=== PATIENT | female | born 1975 | race Two or more races ===

== ENCOUNTER 2025-04-07 08:59 | Emergency (ER) | payer MEDICAID, SELFPAY ==
[2025-04-07 08:59] VITALS: BMI 46.3
[2025-04-07 09:05] VITALS: BP 192/100; PULSE 88; RESP 18; TEMP 36.6; O2SAT 99
--- NOTE | 2025-04-07 09:23 | PD.EDRME ---
Rapid Medical Screening Exam RME Arrival date/time: 04/07/25 08:59 49-year-old female with a history of hypertension and type 2 diabetes presents to the emergency room with a chief complaint of left sided epistaxis x 2 hours. I have greeted and performed a focused initial assessment of this patient. A comprehensive ED assessment and evaluation of the patient, analysis of all test results, and completion of the medical decision making process will be conducted by additional ED providers. Chief Complaint: Epistaxis/Nasal Foreign Body Vital signs: Vital Signs Temperature 98 F 04/07/25 09:05 Pulse Rate 88 04/07/25 09:05 Respiratory Rate 18 04/07/25 09:05 Blood Pressure 192/100 H 04/07/25 09:05 Pulse Oximetry (%) 99 04/07/25 09:05 Oxygen Delivery Method Room Air 04/07/25 09:05 Vital signs reviewed by provider: Yes
[2025-04-07 09:34] VITALS: BP 164/102; PULSE 98; RESP 16; O2SAT 98
[2025-04-07 10:25] VITALS: BP 155/107; PULSE 94; RESP 20; TEMP 36.2; O2SAT 98
--- NOTE | 2025-04-07 10:50 | PD.EDEPIST ---
ED Epistaxis RME/HPI General Chief complaint: Epistaxis/Nasal Foreign Body Stated complaint: NOSE BLEED SINCE 0800 Time Seen by Provider: 04/07/25 10:21 Arrival date/time: 04/07/25 08:59 RME / HPI RME / HPI Narrative: 04/07/25 08:59 49-year-old female with a history of hypertension and type 2 diabetes presents to the emergency room with a chief complaint of left sided epistaxis x 2 hours. I have greeted and performed a focused initial assessment of this patient. A comprehensive ED assessment and evaluation of the patient, analysis of all test results, and completion of the medical decision making process will be conducted by additional ED providers. DR. MCDANIELS MAIN ED EVALUATION 49 year old female with history of hypertension, diabetes, hypothyroidism presents to the ED for evaluation of left nostril bleeding beginning at 03:00 AM today. States she had readjusted her nose piercing just before the bleeding began. Reportedly bleeding had resolved after a few minutes of holding pressure. However, states she began bleeding again at 08:00AM and not improved with holding pressure, prompting ED visit. Denies any recent illness or runny nose. No other associated symptoms or complaints. Related Data Home Medications ?Medication ?Instructions ?Recorded ?Confirmed levothyroxine [Synthroid] PO 10/29/18 lisinopril PO 10/29/18 metformin PO 10/29/18 Previous Rx's ?Medication ?Instructions ?Recorded acetaminophen 500 mg tablet 1,000 mg (2 x 500 mg) PO Q4H PRN 09/06/18 pain #20 tabs montelukast 10 mg tablet 10 mg PO QPM #30 tabs 10/29/18 lisinopril 20 mg tablet 20 mg PO QDAY #30 tabs 07/05/20 cyclobenzaprine 10 mg tablet 10 mg PO HS PRN muscle spasm #20 03/21/21 tabs lisinopril 40 mg tablet 40 mg PO QDAY #30 tabs 04/07/25 Allergies Allergy/AdvReac Type Severity Reaction Status Date / Time No Known Allergies Allergy Verified 04/07/25 09:01 Review of Systems Review of Systems Systems Reviewed: All systems reviewed, normal except as documented Past Medical History Past Medical History CARDIAC: Positive Cardiac Disorders and Hypertension ENDOCRINE: Positive Endocrine Disorders, Diabetes Mellitus Type 2 and Hypothyroidism Surgical History SURGICAL: Positive Abdominal Surgery and Section Social History SMOKING STATUS: Never smoker SUBSTANCE USE: marijuana ED Exam Narrative Physical exam: Constitutional: Awake, alert, well appearing, obese, nontoxic, no acute distress HEENT: Normocephalic, atraumatic, extraocular movements intact, oozing blood from left nare, there is a piercing in place, there was packing placed in triage that was disinflated and oozing noted to increase. The nose piercing was removed and packing inflated to 6mL. Neck: Supple CV: Regular rate and rhythm, no murmurs/rubs/gallops Lungs: Clear to auscultation BL, no respiratory distress. Extremities: No deformities, no edema noted Skin: Warm, dry, intact Course Course Course Narrative: 1110h: The patient complaining of increased discomfort to the left nostril, RN removed 1mL of air from balloon. 1250h: Patient reports no more oozing from the left nare, no other complaints reported. Patient's blood pressure was noted to be significantly elevated during ED stay. Mentions that she ran out of her blood pressure medication several days ago so has not been taking it. Was given dose of labetalol as well as lisinopril here with improvement in systolic blood pressure. Given refill prescription for lisinopril for home. Advised on close outpatient follow-up with her PCP for further outpatient management of her blood pressure and follow-up in the next day with her primary doctor for removal of nasal packing. Would also consider avoiding the nose stud to the left nare given the recent bleeding that she has had. Quality Measures none Orders Category Date Time Status BMP [Basic Metabolic Panel] Stat Lab 04/07/25 11:42 Completed CBC Stat Lab 04/07/25 11:42 Completed Labetalol IV [Trandate IV] Med 04/07/25 13:43 Discontinued 20 mg IVP X1 ONE Lisinopril [Prinivil] Med 04/07/25 13:43 Discontinued 40 mg PO X1 ONE Vital Signs Vital signs: Vital Signs Temperature 98 F 04/07/25 09:05 Pulse Rate 88 04/07/25 09:05 Respiratory Rate 18 04/07/25 09:05 Blood Pressure 192/100 H 04/07/25 09:05 Pulse Oximetry (%) 99 04/07/25 09:05 Oxygen Delivery Method Room Air 04/07/25 09:05 Pulse ox is 99% on room air which is adequate. Epistaxis MDM Narrative MDM Narrative:: ISusanne, am scribing for and in the presence of Dr. Mcdaniels. Patient data External records reviewed:: [facility] previous records Clinical information provided by:: patient Social determinants that could affect healthcare access:: none Patient has the following chronic illnesses:: hypertension, diabetes, hypothyroidism How is presenting disease/condition affected by chronic disease/condition?: uneffected by Evaluation data The following diagnostics were reviewed and interpreted by me:: lab results Lab and/or radiology exams considered but not ordered:: None Interpretation Summary: PLT are within normal range Medications / Prescriptions Medications or Prescriptions considered but not ordered:: None Medication administrations:: Medication Administration History Discontinued Medications Labetalol HCl (Labetalol Inj 5 Mg/Ml Vial 20 Ml) 20 mg IVP X1 ONE Stop: 04/07/25 13:44 Last Admin: 04/07/25 13:58 Dose: 20 mg Documented By: ER Lisinopril (Lisinopril 20 Mg Tablet) 40 mg PO X1 ONE Stop: 04/07/25 13:44 Last Admin: 04/07/25 13:58 Dose: 40 mg Documented By: ER None Consultations Consultation(s) initiated? (list below): No Diagnosis Most likely diagnosis given after review of the tests above:: Epistaxis Admission Indicated Admission indicated?: not indicated Admission Request Was there a request for admission?: No Disposition Plan Disposition Plan: Discharge Discharge Attestation Discharge Attestation: The patient and all family members were given an opportunity to ask questions and understood the discharge instructions. Discharge instructions specifically effects, indications for sooner follow up or return to the emergency department, and the expected course of current diagnosis. Patient condition: Stable Critical Care Time Critical Care Time Critical Care Time: Yes Total Critical Care Time (min.): 30 Attestation: The high probability of a clinically significant, sudden or life threatening deterioration required my full and direct attention, intervention and personal management. The aggregate critical care time was [38] minutes. This time is in addition to time spent performing reported procedures but includes the following: [x] Data Review and interpretation [x] Patient assessment and monitoring of vital signs [x] Documentation [x] Medication orders and management Discharge Plan Plan Patient Disposition: HOME (Self Care) Patient condition on transfer: Stable Prescriptions/Referrals Prescriptions/Med Rec: New lisinopril 40 mg tablet 40 mg PO QDAY Qty: 30 0RF No Action levothyroxine [Synthroid] PO lisinopril PO metformin PO montelukast 10 mg tablet 10 mg PO QPM Qty: 30 0RF cyclobenzaprine 10 mg tablet 10 mg PO HS PRN (Reason: muscle spasm) Qty: 20 0RF acetaminophen 500 mg tablet 1,000 mg PO Q4H PRN (Reason: pain) Qty: 20 0RF lisinopril 20 mg tablet 20 mg PO QDAY Qty: 30 3RF Referrals: Yumi Johnson, JANIE [Primary Care Provider] - 04/08/25 Problem List Clinical Impression: Epistaxis, Hypertensive urgency Patient/Caregiver Discharge Instructions Education Materials: Low-Salt Choices, Hypertension Dc, ED Epistaxis (Adult), ED Hypertension, Established Additional Instructions: Follow-up in the next day for removal of nasal packing. 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 and late evening sun for Vitamin D health benefits) [place] (Avoid alcohol, illicit drugs, caffeinated beverages, smoking, etc) Air (Deep breathing exercises in the early mornings in fresh air) Rest (Adequate rest at night, going to bed a few hours before midnight and avoiding all screens/television/loud music in the time right before going to bed, also avoiding heavy meals just prior to going to bed) Trust in God (Spend time daily in Bible study and prayer - health benefits in contemplation of God's true character) Additional resources that can benefit: www.[employer], look under resources and seminars. Another good website is www.[employer].org Print Language: [place]i Stand Alone Forms: [employer] Info., Patient Portal Info Letter
[2025-04-07 12:10] LABS: Basophils # (Auto) 0.1 Thou/mm3 (0.0-0.2); Basophils % (Auto) 1 % (0-2.5); Eosinophils # (Auto) 0.2 Thou/mm3 (0.0-0.5); Eosinophils % (Auto) 2 % (0-10); Hematocrit 35.8 % (36.0-46.0); Hemoglobin 11.9 g/dL (12.0-16.0); Immature Granulocytes Auto 0.02 Thou/mm3 (0.00-0.00); Lymphocytes # (Auto) 1.5 Thou/mm3 (1.0-4.8); Lymphocytes % (Auto) 17 % (10-50); Mean Corpuscular HGB Conc 33.2 g/dl (31.0-37.0); Mean Corpuscular Hemoglobin 29.2 pg (25.0-35.0); Mean Corpuscular Volume 88 fL (80-100); Monocytes # (Auto) 0.7 Thou/mm3 (0.0-0.8); Monocytes % (Auto) 7 % (0-12); Neutrophils # (Auto) 6.4 Thou/mm3 (1.8-7.7); Neutrophils % (Auto) 73 % (37-80); Nucleated Red Blood Cell # 0.00 Thou/mm3 (0.00-0.00); Nucleated Red Blood Cell % 0 /100 WBC (0); Platelet Count 341 Thou/mm3 (140-440); RDW Standard Deviation 42.4 fL (36.4-46.3); Red Blood Count 4.07 Miln/mm3 (4.00-5.20); White Blood Count 8.8 Thou/mm3 (3.6-11.0)
[2025-04-07 12:24] LABS: Anion Gap 11 (7-16); BUN/Creatinine Ratio 11 Ratio (12-20); Blood Urea Nitrogen 9 mg/dL (9-23); Calcium 9.2 mg/dL (8.3-10.6); Carbon Dioxide 24.5 mMol/L (20.0-31.0); Chloride 108 mMol/L (98-107); Creatinine (Component) 0.8 mg/dL (0.6-1.3); Estimated Creatinine Clearance 111.1 mL/min (>60); Glucose 97 mg/dL (74-106); Osmolality,Calculated 283 (275-295); Potassium 4.3 mMol/L (3.4-5.1); Sodium 143 mMol/L (136-145); eGFR > 60 See Note
[2025-04-07 13:50] VITALS: BP 211/118; PULSE 95; RESP 20; O2SAT 98
[2025-04-07 13:58] VITALS: BP 211/118; PULSE 94; PULSE 95
[2025-04-07] MEDS: LABETALOL INJ 5 MG/ML VIAL 20 ML 20 MG IVP (13:58)
[2025-04-07 15:00] VITALS: BP 189/96; PULSE 85; RESP 18; TEMP 36.7; O2SAT 96
== END 2025-04-07 15:01 | disposition home or self-care (01) ==
PROVIDERS: Emergency Provider Family Medicine; PCP Nurse Practitioner Women's Health
DX: R04.0 Epistaxis (principal); I16.0 Hypertensive urgency
CPT/HCPCS: 30901; 36415; 80048; 85025; 96374; 99283; J3490; A9270; J1920

== ENCOUNTER 2025-04-08 06:45 | Emergency (ER) | payer MEDICAID, SELFPAY ==
[2025-04-08 06:45] VITALS: BMI 44.9
[2025-04-08 06:56] VITALS: BP 183/118; PULSE 91; RESP 18; TEMP 36.8; O2SAT 98
--- NOTE | 2025-04-08 07:15 | EDNOTE_ITS ---
ED Epistaxis RME/HPI General Chief complaint: Epistaxis/Nasal Foreign Body Stated complaint: RHINO ROCKET REMOVAL Time Seen by Provider: 04/08/25 06:50 Source: patient Arrival date/time: 04/08/25 06:45 49-year-old female with a history of hypertension and type 2 diabetes presents to the emergency room with a chief complaint of needing her Rhino Rocket removal after she had an episode of uncontrolled epistaxis yesterday here in the emergency room. Mode of arrival: ambulatory Limitations: no limitations Related Data Home Medications ?Medication ?Instructions ?Recorded ?Confirmed levothyroxine [Synthroid] PO 10/29/18 lisinopril PO 10/29/18 metformin PO 10/29/18 Previous Rx's ?Medication ?Instructions ?Recorded acetaminophen 500 mg tablet 1,000 mg (2 x 500 mg) PO Q 4H PRN 09/06/18 pain #20 tabs montelukast 10 mg tablet 10 mg PO QPM #30 tabs lisinopril 20 mg tablet 20 mg PO QDAY #30 tabs 07/05 cyclobenzaprine 10 mg tablet 10 mg PO HS PRN muscle sp asm #20 03/21/21 tabs lisinopril 40 mg tablet 40 mg PO QDAY #30 tabs 04/07 Allergies Allergy/AdvReac Type Severity Reaction Status Date / Time No Known Allergies Allergy Verified 04/07/25 09:01 Review of Systems Review of Systems Systems Reviewed: All systems reviewed, normal except as documented Constitutional Constitutional: Reports system reviewed and no additional complaints, except as documented, Denies fatigue, Denies fever(s), Denies headache(s) and Denies weakness Eyes Eyes: Reports system reviewed and no additional complaints, except as documented, Denies blurry vision and Denies change in vision ENT Ears, Nose, Mouth, and Throat: Reports system reviewed and no additional complaints, except as documented, Denies otalgia, Denies headache(s), Denies nasal congestion, Denies throat swelling and Denies vertigo Cardiovascular Cardiovascular: Reports system reviewed and no additional complaints, except as documented, Denies chest pain, Denies dyspnea and Denies dyspnea on exertion Respiratory Respiratory: Reports system reviewed and no additional complaints, except as documented, Denies chest congestion, Denies cough, Denies dyspnea, Denies dyspnea on exertion and Denies wheezing Gastrointestinal Gastrointestinal: Reports system reviewed and no additional complaints, except as documented, Denies abdominal pain, Denies cramping, Denies nausea and Denies vomiting Genitourinary Genitourinary: Reports system reviewed and no additional complaints, except as documented Musculoskeletal Musculoskeletal: Reports system reviewed and no additional complaints, except as documented and Denies back pain Integumentary/Breasts Skin/Breast: Reports system reviewed and no additional complaints, except as documented and Denies wounds Neurologic Neurologic: Reports system reviewed and no additional complaints, except as documented, Denies confusion, Denies headache(s), Denies lack of coordination, Denies vertigo and Denies weakness Psychiatric Psychiatric: Reports system reviewed and no additional complaints, except as documented, Denies anxiety, Denies confusion, Denies depression, Denies paranoia, Denies suicidal ideation and Denies tactile hallucinations Endocrine Endocrine: Reports system reviewed and no additional complaints, except as documented and Denies fatigue Hematologic/Lymphatic Hematologic/Lymphatic: Reports system reviewed and no additional complaints, except as documented and Denies lymphadenopathy Allergic/Immunologic Allergic/Immunologic: Reports system reviewed and no additional complaints, except as documented, Denies throat swelling, Denies urticaria and Denies wheezing Past Medical History Past Medical History CARDIAC: Positive Cardiac Disorders and Hypertension; Negative Congestive Heart Failure RESPIRATORY: Negative Chronic Obstructive Pulmonary Disease (COPD) GENITOURINARY: Negative Renal Disease ENDOCRINE: Positive Endocrine Disorders, Diabetes Mellitus Type 2 and Hypothyroidism; Negative Diabetes Mellitus Type 1 Surgical History SURGICAL: Positive Abdominal Surgery and Section Social History SMOKING STATUS: Never smoker SUBSTANCE USE: marijuana ED Exam General Limitations: Present no limitations General appearance: Present alert and in no apparent distress Head Head exam: Present atraumatic Eye Eye exam: Present normal appearance, PERRL and EOMI ENT ENT exam: Present normal exam, normal oropharynx and mucous membranes moist Neck Neck exam: Present normal inspection, full ROM and trachea midline Chest Chest inspection: Present normal inspection and symmetric chest wall rise Respiratory Respiratory exam: Present normal lung sounds bilaterally; Absent respiratory distress, wheezes, stridor, accessory muscle use or prolonged expiratory phase Cardiovascular Cardiovascular exam: Present regular rate, normal rhythm and normal heart sounds; Absent tachycardia Abdominal Exam Abdominal exam: Present soft and normal bowel sounds Extremities Exam Extremities exam: Present normal inspection and full ROM Back Exam Back exam: Present normal inspection and full ROM Neurological Exam Neurological exam: Present alert, oriented X3 and CN II-XII intact Psychiatric Psychiatric exam: Present normal affect and normal mood Skin Skin exam: Present warm, dry, intact and normal color Course Quality Measures none Orders Category Date Time Status cloNIDine HCL [Catapres] Med 04/08/25 07:08 Discontinued 0.1 mg PO X1 ONE cloNIDine HCL [Catapres] Med 04/08/25 07:08 Discontinued 0.1 mg PO X1 ONE Vital Signs Vital signs: Vital Signs Temperature 98.2 F 04/08/25 06:56 Pulse Rate 91 04/08/25 06:56 Respiratory Rate 18 04/08/25 06:56 Blood Pressure 183/118 H 04/08/25 06:56 Pulse Oximetry (%) 98 04/08/25 06:56 Oxygen Delivery Method Room Air 04/08/25 06:56 Epistaxis MDM Narrative MDM Narrative:: 49-year-old female with a history of hypertension and type 2 diabetes presents to the emergency room with a chief complaint of needing her Rhino Rocket removal after she had an episode of uncontrolled epistaxis yesterday here in the emergency room. Patient is hemodynamically stable and in no apparent distress. Patient is here to remove her Rhino Rocket after she had an episode of epistaxis as well as a hypertensive urgency yesterday during the emergency room. Today the Rhino Rocket was removed with no complications but the patient's blood pressure still at 183/118. The patient was given some clonidine and her blood pressure dropped down to 162/108. Patient and I sat down and the patient states she was going to go directly to her primary care provider's office for an increase in her blood pressure medication as a patient currently is only on lisinopril 40 mg daily. Patient was discharged and educated to follow-up with primary care provider in the next 24 to 48 hours and return to the emergency room for any evidence of worsening signs or symptoms Patient data External records reviewed:: [facility] previous records Clinical information provided by:: patient Social determinants that could affect healthcare access:: none Patient has the following chronic illnesses:: Hypertension How is presenting disease/condition affected by chronic disease/condition?: exacerbated by Evaluation data The following diagnostics were reviewed and interpreted by me:: lab results and radiology exam(s) Lab and/or radiology exams considered but not ordered:: Labs and radiology exams considered and ordered Interpretation Summary: N/A Medications / Prescriptions Medications or Prescriptions considered but not ordered:: Medication given Medication administrations:: Medication Administration History Discontinued Medications Clonidine (Clonidine Hcl 0.1 Mg Tablet) 0.1 mg PO X1 ONE Stop: 04/08/25 07:09 Last Admin: 04/08/25 07:16 Dose: 0.1 mg Documented By: SERGEY Clonidine (Clonidine Hcl 0.1 Mg Tablet) 0.1 mg PO X1 ONE Stop: 04/08/25 07:09 Last Admin: 04/08/25 07:17 Dose: 0.1 mg Documented By: SERGEY Medication given Consultations Consultation(s) initiated? (list below): No Diagnosis Epistaxis Differential Diagnosis: anterior epistaxis and other (Hypertensive urgency/hypertensive emergency/epistaxis) Most likely diagnosis given after review of the tests above:: Hypertensive urgency Admission Indicated Admission indicated?: not indicated Admission Request Was there a request for admission?: No Disposition Plan Disposition Plan: Discharge Discharge Attestation Discharge Attestation: The patient and all family members were given an opportunity to ask questions and understood the discharge instructions. Discharge instructions specifically effects, indications for sooner follow up or return to the emergency department, and the expected course of current diagnosis. Patient condition: Stable Discharge Plan Plan Patient Disposition: HOME (Self Care) Discharge Disposition comment: Stable Prescriptions/Referrals Prescriptions/Med Rec: No Action levothyroxine [Synthroid] PO lisinopril PO metformin PO montelukast 10 mg tablet 10 mg PO QPM Qty: 30 0RF cyclobenzaprine 10 mg tablet 10 mg PO HS PRN (Reason: muscle spasm) Qty: 20 0RF acetaminophen 500 mg tablet 1,000 mg PO Q4H PRN (Reason: pain) Qty: 20 0RF lisinopril 20 mg tablet 20 mg PO QDAY Qty: 30 3RF lisinopril 40 mg tablet 40 mg PO QDAY Qty: 30 0RF Referrals: Royce Valdes MD [Primary Care Provider, Family Practice] - In 1 week Problem List Clinical Impression: Hypertensive urgency Patient/Caregiver Discharge Instructions Additional Instructions: Please follow-up with your primary care provider in the next 24 to 48 hours Your nasal rocket was removed with no complications. Your bleeding has stopped. Your blood pressure has been significantly elevated yesterday and today. Please follow-up with your primary care provider for further titration of your hype rtensive medication. Medication was given to you here today. For any evidence of worsening signs or symptoms return to the emergency room immediately Print Language: Chadian Stand Alone Forms: Work/School Release PA/TITLE I DIRECTOR Supervising Physician PA/TITLE I DIRECTOR Supervising Physician: Dr. kirkland
[2025-04-08 07:16] VITALS: BP 183/118; PULSE 91
[2025-04-08 07:17] VITALS: BP 183/118; PULSE 91
[2025-04-08 07:52] VITALS: BP 162/108; PULSE 84; RESP 16; TEMP 36.3; O2SAT 96
== END 2025-04-08 08:10 | disposition home or self-care (01) ==
PROVIDERS: Emergency Provider Emergency Medicine; PCP Family Medicine
DX: T17.1XXA Foreign body in nostril, initial encounter (principal); I16.0 Hypertensive urgency; E11.9 Type 2 diabetes mellitus without complications; I10 Essential (primary) hypertension; W44.9XXA Unspecified foreign body entering into or through a natural orifice, initial encounter
CPT/HCPCS: 30300; 99283; A9270